=== PATIENT | male | born 1990 | race Caucasian/White ===

== ENCOUNTER 2016-11-07 10:18 | Emergency (ER) | payer OTHER ==
[~2016-11-07] VITALS: Ht 185.4 cm; Wt 147.6 kg
[2016-11-07 10:24] VITALS: Ht 185.4 cm; Wt 147.6 kg
[2016-11-07] MEDS ORDERED: SODIUM CHLORIDE 0.9% 1000ML 2,000 ML IV STA (10:37)
[2016-11-07] MEDS ORDERED: ONDANSETRON INJ 2 MG/ML 2 ML VIAL IV STA (10:37)
[2016-11-07] MEDS ORDERED: OPTIRAY 320 IV PRN (10:45)
[2016-11-07 10:55] LABS: URINE APPEARANCE CLEAR (CLEAR); URINE BILIRUBIN NEG (NEG); URINE COLOR DK YELLOW; URINE EPITHELIAL CELL AUTO 20-30 /lpf (0-5); URINE NITRITE NEG (NEG); URINE PH 6.5 (4.5-7.5); URINE SPECIFIC GRAVITY 1.032 (1.000-1.030); UROBILINOGEN NEG (NEG); ZZUR CULT IF INDIC CLEAN CATCH YES
[2016-11-07 10:57] LABS: BASO % 0.3 %; BASO ABS # 0.03 K/uL (0-0.2); COMPLETE YES; EOS % 1.3 %; HEMATOCRIT 44.4 % (42-52); IG% 0.3 %; LYMPH % 21.6 %; LYMPH ABS # 2.29 K/uL (1.2-3.4); MEAN CELL VOLUME 86.7 fL (80-100); MEAN CORPUSCULAR HEMOGLOBIN 30.1 pg (25-34); MEAN CORPUSCULAR HGB CONC 34.7 g/dl (32-36); MEAN PLATELET VOLUME 10.1 fL (7.4-10.4); MONO % 9.7 %; NEUT % 66.8 %; PLATELET COUNT 262 K/uL (130-400); RED BLOOD COUNT 5.12 M/uL (4.7-6.1)
[2016-11-07 10:57] LABS: MANUAL MICROSCOPIC REQUIRED? NO; REVIEW REQ? YES
[2016-11-07 11:17] LABS: BUN/CREATININE RATIO 12.1 (10-20); CALCIUM 9.8 mg/dl (8.5-10.1); CREATININE 0.87 mg/dl (0.60-1.40); POTASSIUM 3.3 mmol/L (3.5-5.1)
[2016-11-07 11:21] LABS: URINE MUCUS PRESENT (NONE PRSENT)
--- NOTE | 2016-11-07 11:58 | DIAGNOSTIC IMAGING REPORT ---
ABD/PELVIS IV CONTRAST ONLY CLINICAL HISTORY: 26 years-old Male presenting with stomach cramps, burning, abdominal pain. TECHNIQUE: Multidetector CT of the abdomen and pelvis was performed after the administration of intravenous contrast. IV contrast: 93 mL of Optiray 320. COMPARISON: None. CT DOSE: The estimated cumulative dose is 1889.63 mGy.cm. FINDINGS: Fabrication Lead topogram: Unremarkable. Lung bases: Punctate nodule noted in the subpleural region of the right upper lobe (series 2 image 1). Otherwise lung bases clear. No pericardial or pleural effusion. Normal heart size. Liver: Normal morphology. Suggestion of hepatic steatosis although the phase of contrast complicates evaluation. Grossly patent hepatic vasculature. Biliary: No intrahepatic or extrahepatic biliary ductal dilatation. Normal gallbladder. Pancreas: Normal. Spleen: Normal. Adrenal glands: Normal. Kidneys and ureters: Normal. No hydronephrosis. Gastrointestinal tract: Mild apparent wall thickening of the descending colon to the level of the hepatic flexure, which could relate to underdistention. Normal appendix. No bowel obstruction. Small hiatal hernia. Peritoneal cavity: No free fluid or intraperitoneal gas. Bladder: Normal. Pelvic organs: Prostate and seminal vesicles normal. Vasculature: Vessels poorly opacified but grossly patent. Lymph nodes: Few prominent lymph nodes in the mesentery. No mesenteric infiltration. Abdominal wall: Normal. Musculoskeletal: Normal. IMPRESSION: 1. Mild apparent wall thickening of the right colon could relate to underdistention rather than representing a colitis given the paucity of secondary signs of inflammation. No other evidence of acute intra-abdominal pathology. Electronically signed by: Gatito Lynn 11/07/2016 11:56 AM Dictated Date/Time: 11/07/2016 11:50 AM
[2016-11-07] MEDS ORDERED: METRONIDAZOLE 250 MG TAB PO STA (13:17)
[2016-11-07] MEDS ORDERED: METR-162 PO (13:19)
[2016-11-07 13:34] VITALS: BP 141/82; PULSE 80; TEMP 36.5; O2SAT 96
--- NOTE | 2016-11-07 17:04 | EMERGENCY ROOM VISIT NOTE ---
History Report prepared by Johnny: Aracelis Mccoy Under the Supervision of: Dr. Freddy Moctezuma D.O. First contact with patient: 10:25 Chief Complaint: ABDOMINAL PAIN Stated Complaint: STOMACH CRAMPS & BURNING Nursing Triage Summary: triage note: pt reports left abd pain since Monday. pt reports diarrhea. History of Present Illness The patient is a 26 year old male who presents to the Emergency Room with complaints of constant left sided abdominal pain beginning 4 days prior to arrival. The patient states that he was on his way to a music festival when the pain began. He slept in a tent for the weekend and notes he experienced worsening abdominal pain. Today he notes is the most relief of his pain he has experienced since it began. The patient describes the pain as a burning sensation. He notes the pain radiates down to his pelvis. The patient has been drinking water but is not urinating frequently. He notes multiple episodes of diarrhea yesterday and today. He is unsure as to the cause of the pain. The patient does note he drinks water from a spring. He has been doing this since last year at the same spring. He notes this past month he has been drinking green tea and has not had green tea before. The patient has no history of abdominal surgeries. Pt denies headache, change in vision, fevers, chest pain, shortness of breath, nausea, vomiting, and melena. 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 A total of 10 systems reviewed and were otherwise negative. Past Medical & Surgical Medical Problems: (1) Hypertension Family History Patient reports no known family medical history. Social History Smoking Status: Never Smoker Smokeless Tobacco Use: No Alcohol Use: none Occupation Status: employed Current/Historical Medications Scheduled Metronidazole (Flagyl), 500 MG PO BID Allergies Coded Allergies: No Known Allergies (Verified , 11/07/16) Physical Exam Vital Signs Date Time Temp Pulse Resp B/P (MAP) Pulse Ox O2 Delivery O2 Flow Rate FiO2 11/07/16 13:34 36.5 80 16 141/82 96 Room Air 11/07/16 12:08 80 16 141/82 96 11/07/16 10:24 36.5 118 18 178/125 98 Room Air Physical Exam GENERAL: sitting up in bed, disheveled, alert, well nourished, no distress, non- toxic EYE EXAM: normal conjunctiva OROPHARYNX: no exudate, no erythema, lips, buccal mucosa, and tongue normal and mucous membranes are moist NECK: supple, no nuchal rigidity, no adenopathy, non-tender LUNGS: Clear to auscultation. Normal chest wall mechanics HEART: no murmurs, S1 normal and S2 normal ABDOMEN: abdomen soft, minimal epigastric and periumbilical tenderness, normo- active bowel sounds, no masses, no rebound or guarding. BACK: Back is symmetrical on inspection and there is no deformity, no midline tenderness, no CVA tenderness. SKIN: no rashes and no bruising UPPER EXTREMITIES: upper extremities are grossly normal. LOWER EXTREMITIES: No pitting edema. NEURO EXAM: Normal sensorium, cranial nerves II-XII grossly intact, normal speech, no gross weakness of arms, no gross weakness of legs. Medical Decision & Procedures ER Provider Diagnostic Interpretation: CT result as stated below per my review and the radiologist's interpretation: ABD/PELVIS IV CONTRAST ONLY CLINICAL HISTORY: 26 years-old Male presenting with stomach cramps, burning, abdominal pain. TECHNIQUE: Multidetector CT of the abdomen and pelvis was performed after the administration of intravenous contrast. IV contrast: 93 mL of Optiray 320. COMPARISON: None. CT DOSE: The estimated cumulative dose is 1889.63 mGy.cm. 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 Lung bases: Punctate nodule noted in the subpleural region of the right upper lobe (series 2 image 1). Otherwise lung bases clear. No pericardial or pleural effusion. Normal heart size. Liver: Normal morphology. Suggestion of hepatic steatosis although the phase of contrast complicates evaluation. Grossly patent hepatic vasculature. Biliary: No intrahepatic or extrahepatic biliary ductal dilatation. Normal gallbladder. Pancreas: Normal. Spleen: Normal. Adrenal glands: Normal. Kidneys and ureters: Normal. No hydronephrosis. Gastrointestinal tract: Mild apparent wall thickening of the descending colon to the level of the hepatic flexure, which could relate to underdistention. Normal appendix. No bowel obstruction. Small hiatal hernia. Peritoneal cavity: No free fluid or intraperitoneal gas. Bladder: Normal. Pelvic organs: Prostate and seminal vesicles normal. Vasculature: Vessels poorly opacified but grossly patent. Lymph nodes: Few prominent lymph nodes in the mesentery. No mesenteric infiltration. Abdominal wall: Normal. Musculoskeletal: Normal. IMPRESSION: 1. Mild apparent wall thickening of the right colon could relate to underdistention rather than representing a colitis given the paucity of secondary signs of inflammation. No other evidence of acute intra-abdominal pathology. Electronically signed by: Gatito Lynn 11/07/2016 11:56 AM Dictated Date/Time: 11/07/2016 11:50 AM Laboratory Results 11/07/16 10:30 Red Blood Count 5.12, Mean Corpuscular Volume 86.7, Mean Corpuscular Hemoglobin 30.1, Mean Corpuscular Hemoglobin Concent 34.7, Mean Platelet Volume 10.1, Neutrophils (%) (Auto) 66.8, Lymphocytes (%) (Auto) 21.6, Monocytes (%) (Auto) 9.7, Eosinophils (%) (Auto) 1.3, Basophils (%) (Auto) 0.3, Neutrophils # (Auto) 7.08, Lymphocytes # (Auto) 2.29, Monocytes # (Auto) 1.03, Eosinophils # (Auto) 0.14, Basophils # (Auto) 0.03 11/07/16 10:30 Test 11/07/16 10:30 11/07/16 10:34 White Blood Count 10.60 K/uL (4.8-10.8) Red Blood Count 5.12 M/uL (4.7-6.1) Hemoglobin 15.4 g/dL (14.0-18.0) Hematocrit 44.4 % (42-52) Mean Corpuscular Volume 86.7 fL (80-100) Mean Corpuscular Hemoglobin 30.1 pg (25-34) Mean Corpuscular Hemoglobin Concent 34.7 g/dl (32-36) Platelet Count 262 K/uL (130-400) Mean Platelet Volume 10.1 fL (7.4-10.4) Neutrophils (%) (Auto) 66.8 % Lymphocytes (%) (Auto) 21.6 % Monocytes (%) (Auto) 9.7 % Eosinophils (%) (Auto) 1.3 % Basophils (%) (Auto) 0.3 % Neutrophils # (Auto) 7.08 K/uL (1.4-6.5) Lymphocytes # (Auto) 2.29 K/uL (1.2-3.4) Monocytes # (Auto) 1.03 K/uL (0.11-0.59) Eosinophils # (Auto) 0.14 K/uL (0-0.5) Basophils # (Auto) 0.03 K/uL (0-0.2) RDW Standard Deviation 41.8 fL (36.4-46.3) RDW Coefficient of Variation 13.1 % (11.5-14.5) Immature Granulocyte % (Auto) 0.3 % Immature Granulocyte # (Auto) 0.03 K/uL (0.00-0.02) Anion Gap 10.0 mmol/L (3-11) Est Creatinine Clear Calc Drug Dose 196.4 ml/min Estimated GFR () 139.0 Estimated GFR (Non- 120.0 BUN/Creatinine Ratio 12.1 (10-20) Calcium Level 9.8 mg/dl (8.5-10.1) Total Bilirubin 0.3 mg/dl (0.2-1) Direct Bilirubin 0.1 mg/dl (0-0.2) Aspartate Amino Transf (AST/SGOT) 14 U/L (15-37) Alanine Aminotransferase (ALT/SGPT) 34 U/L (12-78) Alkaline Phosphatase 92 U/L (45-117) Total Protein 8.4 gm/dl (6.4-8.2) Albumin 3.9 gm/dl (3.4-5.0) Lipase 131 U/L (73-393) Urine Color DK YELLOW Urine Appearance CLEAR (CLEAR) Urine pH 6.5 (4.5-7.5) Urine Specific [place] 1.032 (1.000-1.030) Urine Protein 1+ (NEG) Urine Glucose (UA) NEG (NEG) Urine Ketones TRACE (NEG) Urine Occult Blood 2+ (NEG) Urine Nitrite NEG (NEG) Urine Bilirubin NEG (NEG) Urine Urobilinogen NEG (NEG) Urine Leukocyte Esterase NEG (NEG) Urine WBC (Auto) 1-5 /hpf (0-5) Urine RBC (Auto) 5-10 /hpf (0-4) Urine Hyaline Casts (Auto) 0 /lpf (0-5) Urine Epithelial Cells (Auto) 20-30 /lpf (0-5) Urine Bacteria (Auto) NEG (NEG) Urine Crystals CALCIUM OXALATE (NONE Urine Mucus PRESENT (NONE PRSENT) Urine Yeast (Auto) BUDDING (NONE PRSENT) Laboratory results per my review. Medications Administered Medications (Trade) Dose Ordered Sig/Chiki Route Start Time Stop Time Status Last Admin Dose Admin Sodium Chloride 2,000 ml @ 999 mls/hr Q2H1M STAT IV 11/07/16 10:37 11/07/16 12:37 DC 11/07/16 10:40 999 MLS/HR Ondansetron HCl (Zofran Inj) 4 mg NOW STAT IV 11/07/16 10:37 11/07/16 10:39 DC 11/07/16 10:44 4 MG Metronidazole (Flagyl Tab) 500 mg NOW STAT PO 11/07/16 13:17 11/07/16 13:18 DC 11/07/16 13:24 500 MG ED Course ED COURSE: Vital signs were reviewed and showed tachycardic and hypertensive. The patients medical record was reviewed The above diagnostic studies were performed and reviewed. ED treatments and interventions as stated above. 1030: The patient was evaluated in room C3. A complete history and physical examination was performed. 1037: Zofran Inj 4 mg IV, Sodium Chloride 2,000 ml @ 999 mls/hr IV. 1241: I checked on the patient and he is feeling better. 1317: Flagyl Tab 500 mg PO. 1319: Upon reevaluation, the patient is hemodynamically stable.I discussed my findings with the patient and he understands and agrees with the treatment plan. Based on the patients age, coexisting illnesses, exam and lab findings the decision to treat as an outpatient was made. The patient remained stable while under my care. The patient appeared well at the time of discharge. Medical Decision Differential diagnoses includes but is not limited to gastritis, peptic ulcer disease, GERD, gallbladder disease, pancreatitis, small bowel obstruction, acute coronary syndrome, pericarditis, ischemic bowel, irritable bowel disease, irritable bowel syndrome, appendicitis, diverticulitis, malignancy, hernia, urinary tract infection, torsion, perforation, trauma, infectious. Medication Reconciliation: I attest that I have personally reviewed the patient' s current medication list. Blood pressure screening: Patient was found to have an elevated blood pressure and was referred to their primary doctor for recheck and further treatment. The patient is a 26 year old male who presents to the ED with complaints of abdominal pain. Patient notes that this pain has been intermittent and Monday. It is in the epigastric region. No exacerbating or remitting factors. CBC was unremarkable. BMP shows a potassium of 3.3 but is otherwise unremarkable. LFTs along with bilirubin and lipase is normal. Patient has no urinary complaints. Yeast was found although I favor this contaminant and as he is not a diabetic. We'll await culture for this. Covered patient with Flagyl for possible Giardia as he was taking for streams and had profuse diarrhea. Patient was unable to give a stool stable. CT of abdomen and pelvis was benign. Patient was discharged follow-up PCP. Discussed with Pt concerning signs and symptoms to watch out for. Pt was instructed to follow up with their PCP and discussed with the patient their option to return to the ED at anytime for persistent or worsening symptoms. The appropriate anticipatory guidance and out-patient management, including indications for return to the emergency department, were explained at length to the patient and understood. Impression Primary Impression: Abdominal pain Additional Impression: Diarrhea Scribe Attestation The scribe's documentation has been prepared under my direction and personally reviewed by me in its entirety. I confirm that the note above accurately reflects all work, treatment, procedures, and medical decision making performed by me. Departure Information Dispostion Home / Self-Care Prescriptions Metronidazole (FLAGYL) 500 Mg Tab 500 MG PO BID, #10 TAB Prov: Freddy Moctezuma, DO 11/07/16 Referrals No Doctor, Assigned (PCP) Forms HOME CARE DOCUMENTATION FORM, IMPORTANT VISIT INFORMATION Patient Instructions Abdominal Pain - [facility], [facility] Additional Instructions Please follow up with your primary care doctor with in the next 24 hours. Any worsening of your symptoms, please return to the ED immediately. This includes fevers greater than 100.4, blood in your stool, unable to eat or drink, persistent vomiting, or any other concerning signs or symptoms from your standpoint. Please refrain from drinking from streams. Problem Qualifiers Primary Impression: Abdominal pain Abdominal location: generalized Qualified Codes: R10.84 - Generalized abdominal pain Additional Impression: Diarrhea Diarrhea type: presumed infectious Qualified Codes: A09 - Infectious gastroenteritis and colitis, unspecified
== END 2016-11-07 13:35 | disposition home or self-care (01) ==
LOC: C.EDB 10:21 → C.EDC 13:35
DX: R10.30 Lower abdominal pain, unspecified (principal); R19.7 Diarrhea, unspecified; I10 Essential (primary) hypertension